=== PATIENT | female | born 1985 | race Two or more races ===

== ENCOUNTER 2018-09-29 04:28 | Emergency (ER) | payer BC ==
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
[2018-09-29 06:22] VITALS: BP 112/76
== END 2018-09-29 06:22 | disposition home or self-care (01) ==
DX: F10.920 Alcohol use, unspecified with intoxication, uncomplicated (principal); V47.0XXA Car driver injured in collision with fixed or stationary object in nontraffic accident, initial encounter; Y92.9 Unspecified place or not applicable; Y93.9 Activity, unspecified; Y99.9 Unspecified external cause status